=== PATIENT | female | born 1965 | race Caucasian/White ===

== ENCOUNTER 2016-07-27 00:37 | Emergency (ER) | payer OTHER ==
[2016-07-27 02:35] VITALS: BP 144/96
== END 2016-07-27 02:35 | disposition home or self-care (01) ==
LOC: ED 00:37
DX: S01.511A Laceration without foreign body of lip, initial encounter (principal); W22.03XA Walked into furniture, initial encounter; Y93.89 Activity, other specified; Y92.89 Other specified places as the place of occurrence of the external cause; Y99.8 Other external cause status
CPT/HCPCS: 90715; J2001